=== PATIENT | female | born 1980 | race Caucasian/White ===

== ENCOUNTER 2017-06-23 06:26 | Inpatient (IN) | payer OTHER ==
[2017-06-23] MEDS ORDERED: Buffered Lidocaine 0.9% SYRIN* 5 ML/SYR SYRINGE INTRADERM ONE (07:09)
[2017-06-23] MEDS ORDERED: Sodium Citrate/Citric Acid* 15 ML UDC PO ONE (07:09)
[2017-06-23] MEDS ORDERED: ceFOXitin 2 GM IVPREMIX* 2 GM/50 ML BAG IVPB ONE (07:10)
[2017-06-23] MEDS ORDERED: ceFOXitin 2 GM IVPREMIX* 2 GM/50 ML BAG ONE (07:15)
[2017-06-23] MEDS ORDERED: Sodium Citrate/Citric Acid* 15 ML UDC ONE (07:15)
[2017-06-23] MEDS ORDERED: Morphine PF AMP (0.5MG/ML)* 5 MG/10 ML AMP ONE (07:40)
[2017-06-23] MEDS ORDERED: OXYTOCIN* 10 UNITS/ML 1 ML VIAL ONE (07:40)
[2017-06-23] MEDS ORDERED: Phenylephrine IV* 40 MCG/ML 10 ML SYRINGE ONE (07:40)
[2017-06-23] MEDS ORDERED: Ondansetron INJ* 2 MG/ML VIAL IV PRN ×2 (08:20→08:21)
[2017-06-23] MEDS ORDERED: fentaNYL* 50 MCG/ML 2 ML VIAL (100 MCG VIAL) IV PRN (08:20)
[2017-06-23] MEDS ORDERED: Naloxone* 0.4 MG/ML 1 ML VIAL IV PRN (08:21)
[2017-06-23] MEDS ORDERED: oxyCODONE/Acetamin 5/325 MG* TAB PO PRN ×2 (08:21)
[2017-06-23] MEDS ORDERED: diPHENhydraMINE IV* 50 MG/ML 1 ml VIAL (BENADRYL) IV PRN (08:21)
[2017-06-23] MEDS ORDERED: Glycerin ADULT SUPP PR PRN (08:59)
[2017-06-23] MEDS ORDERED: Witch Hazel PAD* JAR TOPICAL PRN (08:59)
[2017-06-23] MEDS ORDERED: Zolpidem TAB* 5 MG PO PRN (08:59)
[2017-06-23] MEDS ORDERED: Dibucaine 1% 28.35 GM TUBE PR PRN (08:59)
[2017-06-23] MEDS ORDERED: Acetaminophen TAB* 325 MG PO PRN (08:59)
[2017-06-23] MEDS: Docusate CAP* 100 MG PO SCH ×3 (09:56→22:32)
[2017-06-23] MEDS: Ketorolac INJ* 30 MG/ML 1 ML VIAL IV PRN (11:45)
[2017-06-23] MEDS: Simethicone TAB* 80 MG TAB.CHEW PO SCH ×3 (12:30→22:31)
[2017-06-24] MEDS: Ketorolac INJ* 30 MG/ML 1 ML VIAL IV PRN (05:59)
[2017-06-24 08:02] LABS: Hematocrit 30 % (35-47); Hemoglobin 10.2 g/dl (12.0-16.0); Mean Corpuscular HGB Conc 34 g/dl (31-36); Mean Corpuscular Hemoglobin 29 pg (27-31); Mean Corpuscular Volume 84 fL (80-97); Mean Platelet Volume 9 um3 (7.4-10.4); Red Blood Count 3.51 10^6/ul (4.0-5.4); Red Cell Distribution Width 14 % (10.5-15); White Blood Count 12.3 10^3/ul (3.5-10.8)
[2017-06-24] MEDS: Simethicone TAB* 80 MG TAB.CHEW PO SCH ×4 (08:14→22:47)
[2017-06-24] MEDS: Docusate CAP* 100 MG PO SCH ×3 (08:14→22:47)
[2017-06-24] MEDS: oxyCODONE/Acetamin 5/325 MG* TAB PO PRN ×3 (08:14→22:47)
[2017-06-24] MEDS ORDERED: Ferrous Gluconate TAB* 324 MG TAB PO SCH (09:00)
[2017-06-24] MEDS: Ibuprofen TAB* 600 MG PO PRN ×2 (12:04→17:52)
[2017-06-25] MEDS: Ibuprofen TAB* 600 MG PO PRN ×4 (00:03→20:01)
[2017-06-25] MEDS: oxyCODONE/Acetamin 5/325 MG* TAB PO PRN ×5 (04:17→23:57)
[2017-06-25] MEDS: Docusate CAP* 100 MG PO SCH ×3 (07:47→20:01)
[2017-06-25] MEDS: Simethicone TAB* 80 MG TAB.CHEW PO SCH ×4 (07:47→20:01)
[2017-06-26] MEDS: Ibuprofen TAB* 600 MG PO PRN ×2 (03:20→11:55)
[2017-06-26 08:41] VITALS: BP 98/55
[2017-06-26] MEDS: Docusate CAP* 100 MG PO SCH (09:00)
[2017-06-26] MEDS ORDERED: Influenza VAC *QUAD* 2017-18* 0.5 ML SYRINGE IM ONE (09:00)
[2017-06-26] MEDS: oxyCODONE/Acetamin 5/325 MG* TAB PO PRN ×2 (09:00→12:55)
[2017-06-26] MEDS: Simethicone TAB* 80 MG TAB.CHEW PO SCH ×2 (09:03→12:54)
--- NOTE | 2017-07-02 07:14 | OP ---
DATE OF OPERATION: 06/23/17 - ROOM #116 DATE OF : 80 SURGEON: Willy Pelayo MD RECREATION THERAPY TEACHER: Sherita Freeman, certified phlebotomy technician. ANESTHESIOLOGIST: Chance Hunt MD ANESTHESIA: Spinal. PRE-OP DIAGNOSIS: Intrauterine at 39 weeks with a prior section who desires repeat section. POST-OP DIAGNOSIS: Intrauterine at 39 weeks with a prior section who desires repeat section. OPERATIVE PROCEDURE: Repeat low transverse section. ESTIMATED BLOOD LOSS: 600 cc. SPECIMENS: Sent to pathology was cord blood. FLUIDS: She received 2600 cc of IV crystalloid fluid. URINE OUTPUT: Her urine output was clear. FINDINGS: Delivery of a viable female with Apgars of 9 and 9, weighing 6 pounds and 12 ounces over clear fluid. The placenta was grossly intact with a 3-vessel cord noted. The uterus, adnexa, bowel, and bladder were all within normal limits and there were no complications. DESCRIPTION OF PROCEDURE: The patient was taken to the operating room where she was identified. She was placed on the operating table where a spinal anesthetic was obtained without difficulty. She was then placed in the supine position with a leftward tilt, prepped and draped in a normal sterile fashion. A Pfannenstiel skin incision was then made with a knife and carried to the midline layer of fascia. The fascia was then nicked in the midline and extended laterally with curved Young scissors. The fascia was then grasped superiorly and inferiorly with Eugene clamps and dissected off sharply from the rectus muscle. The rectus muscle was in the midline bluntly. The peritoneum was identified, grasped with pickups, and entered sharply with Metzenbaum scissors, and extended superiorly and inferiorly sharply. A bladder blade was inserted into the patient's abdomen and bladder flap was created over which the bladder blade was then reinserted and low transverse uterine incision was then made with a knife, extended laterally with bandage scissors. The 's head was then grasped and delivered atraumatically. The nose and mouth were suctioned. The rest of the 's body was then delivered. The cord was clamped and cut. The was handed off to awaiting cardiac cath lab technologist. Cord bloods were obtained. The placenta was then removed manually. The uterus was then exteriorized and cleared of all clot and debris using moist laparotomy sponges. The uterine incision was then closed using 0 Polysorb suture in a running locked fashion with a second imbricating layer of 0 Polysorb suture. At this point, the uterus was returned to the patient's abdomen, the gutters were cleared of all clot and debris using moist laparotomy sponges. The peritoneum was then closed using 3-0 Polysorb suture in a running fashion. The fascia was closed using 0 Polysorb suture in a running fashion. The skin was closed with a 4-0 Monocryl subcuticular stitch. The patient tolerated the procedure well. Sponge, lap, needle counts were correct x2. She was then transferred to recovery room area in stable condition. [id number]/[facility] #: [id number] WILLIE
== END 2017-06-26 14:27 | disposition home or self-care (01) | DRG 540 ==
LOC: MCHOB 06:26
PROVIDERS: ADMIT Obstetrics & Gynecology; ATTEND Obstetrics & Gynecology
PROC: 10D00Z1 Extraction of Products of Conception, Low, Open Approach (ICD-10-PCS; principal; 2017-06-23 07:45)
DX: O34.211 Maternal care for low transverse scar from previous cesarean delivery (principal); Z37.0 Single live birth; Z3A.39 39 weeks gestation of pregnancy
CPT/HCPCS: 36415; 85025; 90686; A9270-GY; J0694; J1885; J2405; J2590